=== PATIENT | female | born 1985 | race Caucasian/White ===

== ENCOUNTER → 2017-03-26 | Outpatient (CLI) | payer BC ==
[~2017-03-26] MED LIST: FLUO20CA35 PO; IBUP-1450 PO; MULT-222 PO; PRT/20 PO; RXC5 PO
--- NOTE | 2017-03-26 10:31 | DIAGNOSTIC IMAGING REPORT ---
MRI OF THE LUMBAR SPINE WITHOUT CONTRAST CLINICAL HISTORY: Lumbar disc herniation. COMPARISON STUDY: MRI of the lumbar spine April 15, 2016. TECHNIQUE: Utilizing a 1.5 Lin magnet and dedicated coil, multiplanar, multiecho imaging of the lumbar spine was performed without IV contrast. FINDINGS: For purposes of numbering on this exam, the L5-S1 disc space is assigned to axial image 23 of 26. Alignment of lumbar spine is anatomic. Vertebral body heights are maintained. Conus terminates at the lower L1 level. Paravertebral soft tissues are unremarkable. There is no suspicious marrow replacement. L1-2: The central canal and neural foramen are patent. L2-3: The central canal and neural foramen are patent. L3-4: The central canal and neural foramen are patent. L4-5: The central canal and neural foramen are patent. L5-S1: There is disc space narrowing with disc desiccation. There is a disc bulge with superimposed large central/right paracentral disc herniation which likely reflects an extrusion. This is increased in size since exam of April 15, 2016 and results in severe narrowing of the right aspect of the canal and the right lateral recess. There is no significant neural foraminal stenosis. IMPRESSION: Increase in size of a large right paracentral/central disc extrusion at L5-S1 since MRI of April 15, 2016. This results in severe narrowing of the right lateral recess and right aspect of the canal with mass effect upon the descending right S1 nerve root. The disc material may be contiguous although an adjacent disc fragment may be present. Electronically signed by: Edgar Serra M.D. 03/26/2017 10:30 AM Dictated Date/Time: 03/26/2017 10:22 AM
== END | disposition home or self-care (01) ==
LOC: C.MRI 09:36
PROVIDERS: ATTEND Orthopaedic Surgery Orthopaedic Surgery of the Spine
DX: M51.16 Intervertebral disc disorders with radiculopathy, lumbar region (principal)

== ENCOUNTER 2017-04-12 10:25 | Inpatient (IN) | payer BC ==
--- NOTE | 2017-04-01 09:53 | PAT Medication Instructions ---
Service Date Apr 01, 2017. Current Home Medication List Fluoxetine (Prozac), 20 MG PO QPM Ibuprofen (Motrin), 600 MG PO BID PRN for Pain Multiple Vitamins W/ Minerals (Multi For Her), 1 TAB PO QPM Pantoprazole (Protonix), 40 MG PO QPM Medication Instructions For Your Scheduled Surgery - Check with surgeon for instructions: Ibuprofen (Motrin), 600 MG PO BID PRN for Pain - Take the following medications as scheduled the night before surgery: Pantoprazole (Protonix), 40 MG PO QPM Multiple Vitamins W/ Minerals (Multi For Her), 1 TAB PO QPM Fluoxetine (Prozac), 20 MG PO QPM If you have any questions please call us at [phone] or [phone] or [phone]
[2017-04-01 10:24] LABS: BASO % 0.9 %; BASO ABS # 0.03 K/uL (0-0.2); COMPLETE YES; EOS % 3.7 %; HEMATOCRIT 41.8 % (37-47); IG% 0.3 %; LYMPH % 44.2 %; LYMPH ABS # 1.55 K/uL (1.2-3.4); MEAN CELL VOLUME 85.8 fL (80-100); MEAN CORPUSCULAR HEMOGLOBIN 28.5 pg (25-34); MEAN CORPUSCULAR HGB CONC 33.3 g/dl (32-36); MEAN PLATELET VOLUME 9.6 fL (7.4-10.4); MONO % 4.6 %; NEUT % 46.3 %; PLATELET COUNT 253 K/uL (130-400); RED BLOOD COUNT 4.87 M/uL (4.2-5.4); WHITE BLOOD COUNT 3.51 K/uL (4.8-10.8)
--- NOTE | 2017-04-01 10:39 | DIAGNOSTIC IMAGING REPORT ---
CHEST PREADMISSION(PA/LAT) CLINICAL HISTORY: Preoperative evaluation. COMPARISON STUDY: No previous studies for comparison. FINDINGS: Lung volumes are normal. Lungs are clear. There is no pneumothorax or pleural effusion. Cardiac size is normal. Mediastinal contours are normal. There is no evidence of pulmonary edema. IMPRESSION: No acute cardiopulmonary findings. Electronically signed by: Edgar Serra M.D. 04/01/2017 10:38 AM Dictated Date/Time: 04/01/2017 10:36 AM
[2017-04-01 10:52] LABS: URINE APPEARANCE CLEAR (CLEAR); URINE BILIRUBIN NEG (NEG); URINE COLOR YELLOW; URINE NITRITE NEG (NEG); URINE SPECIFIC GRAVITY 1.016 (1.000-1.030); UROBILINOGEN NEG (NEG)
[2017-04-01 10:58] LABS: MANUAL MICROSCOPIC REQUIRED? NO; REVIEW REQ? NO
[2017-04-01 11:24] LABS: BUN/CREATININE RATIO 13.5 (10-20); CALCIUM 8.9 mg/dl (8.5-10.1); CREATININE 0.79 mg/dl (0.60-1.20); POTASSIUM 4.4 mmol/L (3.5-5.1)
[~2017-04-12] VITALS: Ht 172.7 cm; Wt 89.2 kg
[2017-04-12] VITALS (9 sets, daily range): BP systolic 120–137; BP diastolic 74–87; PULSE 78–96; TEMP 36.3–37.1; O2SAT 97–100; Ht 172.7 cm; Wt 89.2 kg
[~2017-04-12 10:25] MED LIST changes: +CEFAZOLIN 2000 MG/60 ML D5W IV SCH; +LACTATED RINGER'S 1000ML 1,000 ML IV SCH; -RXC5 PO
[2017-04-12] MEDS ORDERED: ROCURONIUM BROMIDE 10 MG/ML 5 ML VIAL ONE ×2 (13:10→15:45)
[2017-04-12] MEDS ORDERED: ONDANSETRON INJ 2 MG/ML 2 ML VIAL ONE (13:10)
[2017-04-12] MEDS ORDERED: PROPOFOL IV EMULSION 10 MG/ML 20 ML VIAL IV ONE (13:10)
[2017-04-12] MEDS ORDERED: NEOSTIGMINE METHYLSULFATE 1 MG/ML 10ML VIAL ONE (13:10)
[2017-04-12] MEDS ORDERED: GLYCOPYRROLATE INJ 0.2 MG/ML VIAL ONE ×2 (13:10→16:34)
[2017-04-12] MEDS ORDERED: DEXAMETHASONE SOD INJ 4 MG/ML VIAL ONE (13:10)
[2017-04-12] MEDS ORDERED: MIDAZOLAM HCL 1 MG/ML 2ML VIAL ONE (13:11)
[2017-04-12] MEDS ORDERED: FENTANYL CITRATE INJ 50 MCG/1 ML 2 ML VIAL ONE ×2 (13:11→16:25)
[2017-04-12] MEDS ORDERED: SCOPOLAMINE 1.5 MG TDSY TD ONE (13:29)
[2017-04-12] MEDS ORDERED: EpHEDrine SULFATE INJ 50 MG/ML AMP IV PRN (13:30)
[2017-04-12] MEDS ORDERED: ONDANSETRON INJ 2 MG/ML 2 ML VIAL IV PRN ×2 (13:30→16:45)
[2017-04-12] MEDS ORDERED: ATROPINE SULFATE 0.1 MG/ML 5ML SYR IV PRN (13:30)
--- NOTE | 2017-04-12 14:06 | History & Physical Bridge Note ---
H&P Re-Evaluation Bridge Note: I have examined the patient, reviewed the History & Physical and in the interval since the performance of the History & Physical I have noted the following changes of clinical significance: No changes noted
--- NOTE | 2017-04-12 14:07 | History and Physical ---
History & Physical Date Apr 12, 2017. Chief Complaint BACK AND LEG PAIN History of Present Illness The patient is a 32 year old female with complaints of Additional History Hepatic Disease: No Endocrine Disorder: No Kidney Disease: No Hypertension: No Heart Disease: No Bleeding Tendencies: No Infectious Diseases: No Allergies Coded Allergies: No Known Allergies (Unverified , 04/12/17) Home Medications Scheduled Fluoxetine (Prozac), 20 MG PO QPM Multiple Vitamins W/ Minerals (Multi For Her), 1 TAB PO QPM Pantoprazole (Protonix), 40 MG PO QPM Scheduled PRN Ibuprofen (Motrin), 600 MG PO BID PRN for Pain Physical Examination Skin: warm/dry, no rash Eyes: normal inspection, EOMI, sclerae normal ENT: normal ENT inspection, pharynx normal Head: normocephalic, atraumatic Neck: supple, no adenopathy, trachea midline Respiratory/Chest: lungs clear, normal breath sounds, no respiratory distress Cardiovascular: regular rate, rhythm, no edema, no murmur Abdomen / GI: normal bowel sounds, non tender Back: normal inspection Extremities: normal inspection, normal range of motion Neurologic/Psych: no motor/sensory deficits, alert, normal reflexes, oriented x 3 Diagnosis Lumbar stenosis Plan of Treatment Lumbar decompression fusion L5-S1.
[2017-04-12] MEDS ORDERED: BACITRACIN 50000 UNIT VIAL ONE (14:33)
[2017-04-12] MEDS ORDERED: SODIUM CHLORIDE 0.9% PF 50 ML VIAL ONE (14:33)
[2017-04-12] MEDS ORDERED: BUPIVACAINE/EPINEPHRINE 0.5% MPF 1:200,000 10 ML VIAL ONE (14:34)
[2017-04-12] MEDS ORDERED: FLOSEAL HEMOSTATIC MATRIX 10ML TOP ONE (16:25)
[2017-04-12] MEDS ORDERED: PHENYLEPHRINE 100MCG/ML 5ML SYR ONE (16:31)
[2017-04-12] MEDS ORDERED: SODIUM CHLORIDE 0.9% 1000ML 1,000 ML IV SCH (16:34)
--- NOTE | 2017-04-12 16:41 | [facility] Operative Report ---
Operative Report Operative Date Apr 12, 2017. Pre-Operative Diagnosis Lumbar stenosis Post-Operative Diagnosis Same as preop Procedure(s) Performed #1 lumbar decompression medial facetectomies L5-S1. #2 posterior spinal fusion L5-S1. #3 placement of posterior instrumentation L5-S1. #4 interbody fusion L5-S1. #5 placement peek Cage 14 x 22 mm L5-S1. #6 placement of locally harvested morcellized autograft in the posterior lateral gutters. #7 placement of infuse collagen sponge by mask graft in the posterior lateral gutters DBM in the interbody space. Surgeon Jennyfer Dispatcher Chief Oil Surgeon(s) Ernesto Estimated Blood Loss 100 Findings Herniated nucleus pulposus Description of Procedure Patient was met with preoperatively case discussed all questions were addressed. The point patient was taken back to the operative suite and after undergoing intubation was placed in a prone position on the Anam table top of the Luis frame. All bony prominences were well-padded eyes inspected to ensure there is no external pressure placed upon them. This point the lumbar spine was prepped and draped in normal sterile fashion. All bony prominences were well-padded eyes were inspected to ensure there is no external pressure placed upon them. This point the lumbar spines prepped and draped no sterile fashion. Sharp dissection with the assistance of Bovie cautery was performed down to and exposing the lamina and transverse processes of L5 and the sacral alar and laterally. Complete laminectomy of L5 was performed noting severe lateral recess stenosis and marked compression of the traversing S1 nerve root on the right. Masseter muscle discectomy material compressing the nerve both anteriorly and posteriorly. Pedicle fusion and placed in L5-S1 levels bilaterally with assistance of fluoroscopy and the Sushila size yang placed. Through a transforaminal approach on the right a complete discectomy was performed and plate create subcortical bleeding bone and a 14 x 22 mm peek cage filled with DBM tapped in position. We did completely decompress the traversing exiting nerve roots on the right and moving all herniated fragments. Brought in and locked and final position bilaterally the transverse processes of 5 and significantly burred to subcortical bleeding bone infuse collagen sponge mask graft locally harvested morcellized autograft placed in the posterior gutters. 15 round ALEXSANDER drain inserted. Incision closed with 1 Vicryl fascia 2-0 Vicryl subcutaneously and 4-0 Monocryl for final skin closure. Sterile dressings. Displaced patient awakened taken to PACU in stable condition. Please note Trudy Orzoco was present throughout the entire procedure from patient positioning complex portions of the procedure and final skin closure. I attest to the content of the Intraoperative Record and any orders documented therein. Any exceptions are noted below.
[2017-04-12] MEDS ORDERED: DO NOT ADMINISTER FLU VACCINE PRN ×3 (16:45)
[2017-04-12] MEDS ORDERED: SOD PHOSPHATE/SOD BIPHOSPHATE ENEMA 132 ML BTL PR PRN (16:45)
[2017-04-12] MEDS ORDERED: NALOXONE HCL 0.4 MG/1 ML VIAL/CARP IV PRN ×2 (16:45)
[2017-04-12] MEDS ORDERED: FAMOTIDINE 20 MG TAB PO PRN (16:45)
[2017-04-12] MEDS ORDERED: LORAZEPAM 0.5 MG TAB PO PRN (16:45)
[2017-04-12] MEDS ORDERED: hydrOXYzine HCL 25 MG TAB PO PRN (16:45)
[2017-04-12] MEDS ORDERED: DO NOT ADMINISTER PNEUMOCOCCAL VACCINE PRN ×2 (16:45)
[2017-04-12] MEDS ORDERED: ACETAMINOPHEN IV 100 ML IV PRN (16:45)
[2017-04-12] MEDS ORDERED: MAGNESIUM HYDROXIDE SUSP 30 ML UDC PO PRN (16:45)
[2017-04-12] MEDS ORDERED: PROMETHAZINE HCL INJ 12.5 MG in SODIUM CHLORIDE 0.9% 50ML 50 ML IV PRN (16:45)
[2017-04-12] MEDS ORDERED: ACETAMINOPHEN 500 MG TAB PO PRN (16:45)
[2017-04-12] MEDS ORDERED: LORAZEPAM INJ 0.5 MG in SYRINGE 0.75 ML IV PRN (16:45)
[2017-04-12] MEDS ORDERED: METOCLOPRAMIDE HCL INJ 5 MG/ML 2 ML VIAL IV PRN (16:45)
[2017-04-12] MEDS ORDERED: BISACODYL 10 MG SUPP PR PRN (16:45)
[2017-04-12] MEDS ORDERED: ALUMINUM/MAGNESIUM SUSP 30 ML UDC PO PRN (16:45)
[2017-04-12] MEDS: FENTANYL CITRATE INJ 50 MCG/1 ML 2 ML VIAL IV PRN ×4 (16:58→17:15)
[2017-04-12] MEDS: HYDROmorphone HCL 0.5MG/ML 50 ML CASSETTE IV PRN ×3 (17:04→23:04)
[2017-04-12] MEDS: HYDROmorphone INJ 1 MG/ML SYR IV PRN ×2 (17:21→17:30)
--- NOTE | 2017-04-12 17:26 | DIAGNOSTIC IMAGING REPORT ---
LUMBAR SPINE 2 OR 3 VIEW CLINICAL HISTORY: L5-S1 DECOMPRESSION/FUSION/INTERBODY TECHNIQUE: Image intensifier COMPARISON STUDY: None FINDINGS: Findings consistent with an L5-S1 laminectomy and fusion. Disc spacers are present IMPRESSION: Anatomic alignment status post L5-S1 fusion The above report was generated using voice recognition software. It may contain grammatical, syntax or spelling errors. Electronically signed by: Conrado Wong M.D. 04/12/2017 5:24 PM Dictated Date/Time: 04/12/2017 5:24 PM
--- NOTE | 2017-04-12 17:58 | Anesthesiology Progress Note ---
Anesthesia Post Op Note Date & Time Apr 12, 2017 at 17:58 Vital Signs Pain Intensity: 3 Vital Signs Past 12 Hours Date Time Temp Pulse Resp B/P (MAP) Pulse Ox O2 Delivery O2 Flow Rate FiO2 04/12/17 17:40 36.6 71 14 132/72 100 Nasal Cannula 4 04/12/17 17:30 77 12 128/74 100 Nasal Cannula 4 04/12/17 17:20 72 16 131/74 100 Nasal Cannula 4 04/12/17 17:10 67 126/70 100 Mask 6 04/12/17 17:00 75 14 112/75 100 Mask 8 04/12/17 16:51 36.6 107 17 131/72 100 Mask 10 04/12/17 11:27 36.9 78 18 120/80 100 Room Air Notes Mental Status: alert / awake / arousable, participated in evaluation Pt Amnestic to Procedure: Yes Nausea / Vomiting: adequately controlled Pain: adequately controlled Airway Patency, RR, SpO2: stable & adequate BP & HR: stable & adequate Hydration State: stable & adequate Anesthetic Complications: no major complications apparent
[2017-04-12] MEDS: LACTATED RINGER'S 1000ML 1,000 ML IV SCH (18:11)
[2017-04-12] MEDS: PANTOprazole SOD 40 MG TAB PO SCH (20:13)
[2017-04-12] MEDS: FLUOXETINE HCL 20 MG CAP PO SCH (21:06)
[2017-04-12] MEDS: DEXAMETHASONE INJ 6 MG in SYRINGE 0 ML IV SCH (21:06)
[2017-04-12] MEDS: CEFAZOLIN IV 2,000 MG in DEXTROSE 5% 50ML 50 ML IV SCH (21:06)
[2017-04-12] MEDS: DOCUSATE SODIUM/SENNA 50/8.6MG TAB PO SCH (21:26)
[2017-04-13] VITALS (9 sets, daily range): BP systolic 97–125; BP diastolic 55–85; PULSE 63–93; TEMP 36.5–37.3; O2SAT 97–100
[2017-04-13] MEDS: LACTATED RINGER'S 1000ML 1,000 ML IV SCH ×2 (00:21→05:54)
[2017-04-13] MEDS ORDERED: HYDROmorphone INJ 1 MG/ML SYR IV PRN (06:00)
[2017-04-13] MEDS ORDERED: HYDROmorphone INJ 0.5 MG/0.5 ML SYR IV PRN (06:00)
[2017-04-13] MEDS ORDERED: DC PCA SCH (06:00)
[2017-04-13] MEDS: CEFAZOLIN IV 2,000 MG in DEXTROSE 5% 50ML 50 ML IV SCH (06:14)
[2017-04-13] MEDS: DEXAMETHASONE INJ 6 MG in SYRINGE 0 ML IV SCH ×2 (06:28→13:35)
[2017-04-13] MEDS ORDERED: NURSING VERBAL MED ORDER ONE (06:45)
[2017-04-13 07:12] LABS: COMPLETE YES; HEMATOCRIT 36.6 % (37-47); IG% 0.1 %; LYMPH % 8.8 %; LYMPH ABS # 0.73 K/uL (1.2-3.4); MEAN CELL VOLUME 84.5 fL (80-100); MEAN CORPUSCULAR HEMOGLOBIN 27.9 pg (25-34); MEAN CORPUSCULAR HGB CONC 33.1 g/dl (32-36); MEAN PLATELET VOLUME 9.4 fL (7.4-10.4); MONO % 5.8 %; NEUT % 85.3 %; PLATELET COUNT 273 K/uL (130-400); RED BLOOD COUNT 4.33 M/uL (4.2-5.4)
[2017-04-13 07:39] LABS: BUN/CREATININE RATIO 8.9 (10-20); CALCIUM 8.9 mg/dl (8.5-10.1); CREATININE 0.8 mg/dl (0.60-1.20); POTASSIUM 3.9 mmol/L (3.5-5.1)
--- NOTE | 2017-04-13 08:05 | Progress Note ---
Progress Note Date of Service Apr 13, 2017. Progress Note Patient specifically 1. Right leg symptoms markedly improved. Back pain well controlled. Vital signs stable. ALEXSANDER drain decreasing appropriately. Assessment status post lumbar decompression fusion. Plan is to initiate physical therapy advance her bowel regimen. Hopefully she'll be discharged home once .
[2017-04-13] MEDS ORDERED: RXC5 PO (08:14)
--- NOTE | 2017-04-13 08:14 | Discharge Instructions ---
Discharge Instructions Date of Service Apr 13, 2017. Admission Reason for Admission: Lumbar Spinal Stenosis Discharge Discharge Diagnosis / Problem: lumbar stenosis Discharge Goals Goal(s): Improve function Activity Recommendations Activity Limitations: per Instructions/Follow-up section . Instructions / Follow-Up Instructions / Follow-Up ACTIVITY RECOMMENDATIONS: SELF CARE INSTRUCTIONS AFTER THORACIC/LUMBAR FUSIONS 1. You may walk to your tolerance. It is good exercise for your legs and back. Expect some back and intermittent leg aches and pains. 2. You may perform "counter-top" level activities (make a sandwich, aiyana with a project, etc.). 3. No bending or lifting of more than 10 pounds or back twisting of any nature (roll like a log when turning in bed). 4. You may ride in a car for 20-30 minutes at a time. No driving until after your first visit with your doctor. 5. Frequent changes of position and restricting sitting to 30 minutes at a time will help limit the amount of back spasms and stiffness you may experience. 6. You may discontinue the use of ambulatory aids (cane, crutches, etc.) once your strength and confidence allow. 7. You may java swing developer the shower and let water strike your incision when you arrive home at least once daily. Do not take a tub bath, sit in a hot tub or go into a swimming pool until after your first recheck in the office. SPECIAL CARE INSTRUCTIONS: VERY IMPORTANT TO READ AND REVIEW A. Your surgical incision has been closed with a cosmetic suture under the skin that will dissolve in about 6 weeks. In 14 days, you can use a pair of clean scissors and cut the suture that is left outside of the skin at the ends of your incision. 1. The small skin tapes can be removed 7 days after surgery if they have not fallen off by that point. 2. You may keep the wound open to air as much as possible to promote healing after post-op day number 5 unless told otherwise by your doctor. 3. If you think the wound looks like it is becoming infected (redness or worsening drainage) and/or you are experiencing fever, chill or worsening back pain and muscle spasms, contact the office so that we may evaluate you as soon as possible. B. Complications are uncommon, but please contact us if you have any signs or symptoms of: 1. wound infection (fever higher than 102.5 degrees F, redness, separation of wound, drainage, or increasing pain from the incision) 2. blood clots in legs (pain, swelling, redness and warmth in legs) 3. urinary tract infection (fever higher than 102.5 degrees F, burning upon urination or increased frequency of urination) 4. nerve problems (inability to walk on your toes or heels, numbness, loss of bowel or bladder control) 5. any other symptoms that concern you C. Please call the office at if you have any concerns or questions about your operation or recovery. D. No smoking! Smoking drastically decreases the chance of a solid fusion. E. Do not take any anti-inflammatory medications (Indocin, Advil, Motrin, Aspirin, Naprosyn, etc.) as these may inhibit the chance of a solid fusion. Tylenol is okay to take for pain. MANAGING PAIN AFTER SPINAL SURGERY 1. Narcotic medication is intended for short-term use and will be provided for surgical pain. Surgical pain usually lasts for a period of 4-6 weeks. Narcotic medication includes Percocet, Vicodin, Darvocet, Tylenol #3 or Lortab. 2. Longer-term pain is more appropriately treated with non-narcotic medication such as Tylenol ES. 3. Muscle spasm is not appropriately treated with narcotics. Muscle relaxers such as Soma, Flexeril or Skelaxin can be used along with Tylenol ES. 4. Remember that we all live with some "aches and pains". This is not unusual or uncommon after an injury or as we get older. a. Back pain is expected and may include muscle spasms for 4 to 6 weeks after surgery. The pain should gradually improve. If the pain worsens for no apparent reason, please contact the office. b. Intermittent leg pain may also be experienced and should not be concerned about unless it worsens for no apparent reason. If so, please contact the office. 5. We will provide appropriate medication within the normal guidelines of their prescribed use. We will also be very cautious and aware of potential abuse and extended duration of patients' medication needs. a. Pain medications are for your comfort and to assist with sleep and rest so that the tissue can heal. They are not provided in order to return to normal activity and should not be used through the day. To do so or worsening pain at night can result from ongoing tissue damage and development of tolerance to the prescribed medicine. 6. Please allow 2-3 days to process refills. Prescriptions will not be mailed but must be picked up at the office. FOLLOW UP VISIT: Keep your scheduled follow-up appointment. Any questions, please call the office at . Current Hospital Diet Patient's current hospital diet: Regular Diet Discharge Diet Recommended Diet: Regular Diet Procedures Procedures Performed: #1 lumbar decompression medial facetectomies L5-S1. #2 posterior spinal fusion L5-S1. #3 placement of posterior instrumentation L5-S1. #4 interbody fusion L5-S1. #5 placement peek Cage 14 x 22 mm L5-S1. #6 placement of locally harvested morcellized autograft in the posterior lateral gutters. #7 placement of infuse collagen sponge by mask graft in the posterior lateral gutters DBM in the interbody space. Pending Studies Studies pending at discharge: no Medical Emergencies . Who to Call and When: Medical Emergencies: If at any time you feel your situation is an emergency, please call 911 immediately. . Non-Emergent Contact Non-Emergency issues call your: Primary Care Provider . "Provider Documentation" section prepared by Oracio Burger. . VTE Core Measure Inpt VTE Proph given/why not?: Jaymie Miller, SCD's
--- NOTE | 2017-04-13 08:14 | Anesthesiology Progress Note ---
Anesthesia Post Op Note Date & Time Apr 13, 2017 at 08:13 Vital Signs Pain Intensity: 2.0 Vital Signs Past 12 Hours Date Time Temp Pulse Resp B/P (MAP) Pulse Ox O2 Delivery O2 Flow Rate FiO2 04/13/17 08:06 36.9 63 10 118/73 (88) 100 Room Air 04/13/17 08:03 Room Air 04/13/17 03:53 37.0 93 16 118/78 (91) 97 Room Air 04/13/17 00:30 82 100 Room Air 04/13/17 00:10 Room Air 04/12/17 23:31 37.1 96 14 137/78 (97) 99 Nasal Cannula 4.0 04/12/17 21:56 36.8 85 14 123/78 (93) 99 Nasal Cannula 3.0 04/12/17 20:56 36.6 87 18 122/79 (93) 97 Room Air Notes Mental Status: alert / awake / arousable, participated in evaluation Pt Amnestic to Procedure: Yes Nausea / Vomiting: adequately controlled Pain: adequately controlled Airway Patency, RR, SpO2: stable & adequate BP & HR: stable & adequate Hydration State: stable & adequate Anesthetic Complications: no major complications apparent
[2017-04-13] MEDS ORDERED: KETOROLAC TROMETHAMINE 30 MG/ML VIAL IV PRN (08:15)
[2017-04-13] MEDS: OXYCODONE HCL IR 5 MG TAB (IMMEDIATE RELEASE) PO PRN ×3 (08:23→19:34)
[2017-04-13] MEDS ORDERED: NURSING DECISION MEDICATION ORDER SCH (19:15)
[2017-04-13] MEDS ORDERED: COUGH DROP (SUGAR FREE) LOZ 24 LOZ/1 BOX PO PRN (19:30)
[2017-04-13] MEDS: FLUOXETINE HCL 20 MG CAP PO SCH (20:40)
[2017-04-13] MEDS: PANTOprazole SOD 40 MG TAB PO SCH (20:40)
[2017-04-13] MEDS: DOCUSATE SODIUM/SENNA 50/8.6MG TAB PO SCH (21:11)
[2017-04-14] VITALS: BP 103/61; PULSE 64
[2017-04-14] MEDS: POLYETHYLENE (MIRALAX) 17 GM PACK PO SCH ×2 (05:39→11:18)
[2017-04-14 06:01] VITALS: BP 103/62; PULSE 70; TEMP 36.9; O2SAT 97
[2017-04-14 07:13] VITALS: BP 125/72; PULSE 71; TEMP 37; O2SAT 97
[2017-04-14] MEDS: OXYCODONE HCL IR 5 MG TAB (IMMEDIATE RELEASE) PO PRN (10:23)
[2017-04-14 12:15] VITALS: BP 125/72; PULSE 71; TEMP 37; O2SAT 97
--- NOTE | 2017-04-14 13:33 | Discharge Summary ---
Orthopedic Discharge Summary Admission Date/Reason Apr 12, 2017 at 11:20 Lumbar Spinal Stenosis. Discharge Date/Disposition Apr 14, 2017 Home Diagnosis Principal Diagnosis: Spinal stenosis Admission Physical Exam As per Admitting History & Physical. Hospital Course Patient underwent lumbar decompression and fusion tolerated this well orthopedic for postoperative. Postoperative day 1 lumbar 1 to is up in the inferior progress nicely. Postoperative day #2 ALEXSANDER drain decreased improperly pain well controlled subsequently discharged home. Discharge orders and instructions found the chart for further review. Discharge Instructions Please refer to the electronic Patient Visit Report (Discharge Instructions) for additional information.
== END 2017-04-14 13:09 | disposition home or self-care (01) | DRG 460 ==
LOC: C.ACU 10:25 → C.3E 11:20 → ENRESERV 17:36
PROVIDERS: ADMIT Orthopaedic Surgery Orthopaedic Surgery of the Spine; ATTEND Orthopaedic Surgery Orthopaedic Surgery of the Spine
PROC: 0SG30AJ Fusion of Lumbosacral Joint with Interbody Fusion Device, Posterior Approach, Anterior Column, Open Approach (ICD-10-PCS; principal; 2017-04-12 11:45)
PROC: 0SB20ZZ Excision of Lumbar Vertebral Disc, Open Approach (ICD-10-PCS; principal; 2017-04-12 11:45)
DX: M48.06 Spinal stenosis, lumbar region (principal); Z79.899 Other long term (current) drug therapy

== ENCOUNTER → 2017-07-15 | Outpatient (CLI) | payer BC ==
[~2017-07-15] MED LIST changes: -CEFAZOLIN 2000 MG/60 ML D5W IV SCH; -IBUP-1450 PO; -LACTATED RINGER'S 1000ML 1,000 ML IV SCH; +RXC5 PO
== END | disposition home or self-care (01) ==
LOC: C.PAPS 12:11
PROVIDERS: ATTEND Family Medicine
DX: Z12.4 Encounter for screening for malignant neoplasm of cervix (principal); Z11.51 Encounter for screening for human papillomavirus (HPV)

== ENCOUNTER 2019-06-27 07:11 | Observation (INO) ==
--- NOTE | 2019-06-20 09:32 | Anesthesiology Consultation ---
Date of Service June 20, 2019 Assessment & Plan (1) Encounter for pre-operative examination: Chart Review Chart Review: Acceptable Risk for Surgery and Patient NOT seen in Pre Admission Testing Consults Requested none History Surgery Operation Date: 06/27/19 12:40 Proposed Procedures p Laparoscopic Cholecystectomy with Cholangiogram, Possible Open Cholecystectomy with Cholangiogram - Neal Arevalo MD Height/Weight Height: 5 ft 8 in Weight: 102.058 kg Allergies Allergy/AdvReac Type Severity Reaction Status Date / Time No Known Allergies Allergy Verified 06/19/19 14:55 Medications Home Medications Medication Instructions Recorded Confirmed Last Taken fluoxetine 20 mg PO HS 03/19/19 06/19/19 06/18/19 norgestimate-ethinyl estradiol 1 tab PO QAM 03/19/19 06/19/19 Unknown [Tri-Sprintec (28)] pantoprazole [Protonix] 40 mg PO QDD 03/19/19 06/19/19 06/18/19 Past Medical History Medical History Acid reflux Anxiety Nausea and vomiting after administration of anesthetic agent GETS MOTION SICKNESS, PATCH BEHIND EAR HELPS Polyp of gallbladder Past Family History Family History Mother Hypertension Father Hypertension Sister Hypertension Past Surgical History Surgical History History of lumbar fusion L5-S1 MARCH 2017 Social History Smoking Status: Former smoker Do You Dip or Chew Tobacco: No Smoking End Date: SMOKED IN COLLEGE, QUIT 2009 Hx Alcohol Use: Yes Alcohol type: beer and wine Alcohol Intake Frequency Comment: 4-6 DRINKS A WEEK Hx Substance Use: No substance use type: does not use Testing Laboratory Results Laboratory Tests 06/02/19 06/02/19 11:34 11:34 WBC 3.66 L Hgb 11.5 L Hct 36.4 L Plt Count 317 Sodium 139 Potassium 4.2 Chloride 107 Carbon Dioxide 27 BUN 10 Creatinine 0.72 Glucose 84 Electrocardiogram Date: 03/19/19 Findings: + NSR @ (88) Normal ECG.
[~2019-06-27 07:11] MED LIST changes: -FLUO20CA35 PO; +LR 15ML/HR IV SCH; -MULT-222 PO; -PRT/20 PO; -RXC5 PO; +SCOPOLAMINE 1.5 MG TDSY TD SCH
--- NOTE | 2019-06-27 07:29 | History & Physical Bridge Note ---
Date of Service June 27, 2019 History & Physical Bridge Note I have examined the patient, reviewed the History & Physical and in the interval since the performance of the History & Physical I have noted the following changes of clinical significance: no changes noted all questions answered to be here later
[2019-06-27] MEDS ORDERED: LIDOCAINE HCL 2% 2 ML VIAL/AMP(20MG/ML) INFIL ONE (07:42)
[2019-06-27] MEDS ORDERED: ROCURONIUM BROMIDE 10 MG/ML 5 ML VIAL ONE (07:42)
[2019-06-27] MEDS ORDERED: PROPOFOL IV EMULSION 10 MG/ML 20 ML VIAL IV ONE (07:42)
[2019-06-27] MEDS ORDERED: MIDAZOLAM HCL 1 MG/ML 2ML VIAL ONE (07:42)
[2019-06-27] MEDS ORDERED: ONDANSETRON INJ 2 MG/ML 2 ML VIAL ONE (07:42)
[2019-06-27] MEDS ORDERED: DEXAMETHASONE SOD INJ 4 MG/ML VIAL ONE (07:42)
[2019-06-27] MEDS ORDERED: fentaNYL citrate 100 MCG/2 ML VIAL ONE ×4 (07:42→10:29)
[2019-06-27] MEDS ORDERED: ATROPINE SULFATE 0.1 MG/ML 10ML SYR IV PRN (08:07)
[2019-06-27] MEDS ORDERED: LABETALOL HCL IV 5 MG/ML 20ML IV PRN (08:07)
[2019-06-27] MEDS ORDERED: ONDANSETRON INJ 2 MG/ML 2 ML VIAL IV PRN ×3 (08:07→12:44)
[2019-06-27] MEDS ORDERED: MEPERIDINE HCL 25 MG/ML CARP IV PRN (08:07)
[2019-06-27] MEDS ORDERED: ePHEDrine sulfate 50 MG/ML AMP IV PRN (08:07)
[2019-06-27] MEDS ORDERED: PHENYLEPHRINE 100MCG/ML 5ML SYR IV PRN (08:07)
[2019-06-27] MEDS ORDERED: LIDOCAINE/EPINEPHRINE 1% 20 ML VIAL ONE (09:03)
[2019-06-27] MEDS ORDERED: CONRAY 60% 50 ML VIAL ONE (09:03)
[2019-06-27] MEDS ORDERED: ePHEDrine sulfate 50 MG/ML SYR ONE (09:54)
[2019-06-27] MEDS ORDERED: GLYCOPYRROLATE 0.2 MG/ML VIAL ONE (09:54)
[2019-06-27] MEDS ORDERED: OXYCODONE/ACETAMINOPHEN 5mg/325mg TAB PO PRN ×2 (10:05)
[2019-06-27] MEDS ORDERED: MoRPHine SULFATE 4 MG/ML 1 ML CARP\\VIAL IV PRN ×2 (10:05→12:44)
[2019-06-27] MEDS ORDERED: MoRPHine SULFATE 2 MG/ML CARP IV PRN ×2 (10:05→12:44)
[2019-06-27] MEDS ORDERED: LABETALOL HCL IV 5 MG/ML 20ML IV ONE (10:05)
[2019-06-27] MEDS ORDERED: SODIUM CHLORIDE 0.9% 1000ML 1,000 ML IV SCH (10:15)
[2019-06-27] MEDS ORDERED: SURGICEL ABSORB HEMOSTAT 2IN X 14IN TOP ONE (10:18)
--- NOTE | 2019-06-27 10:42 | Post Operative Brief Note ---
[facility] Immediate Post Op with CF Date of Surgery June 27, 2019 Pre & Post Diagnosis Operation Date: 06/27/19 08:20 Pre-Op Diagnosis: Cholecystitis Post-Op Diagnosis: Cholecystitis Procedure Operation Date: 06/27/19 08:20 Actual Procedures p Laparoscopic Cholecystectomy (Not Applicable) - Neal Arevalo MD Surgeon Neal Arevalo MD Clinical Research Tech Rivas CHRISTIAN Estimated Blood Loss 50 Findings Consistent with Post-Op Diagnosis Specimens Specimen Description: A: gallbladder Drains Anam-Lyle Drain
[2019-06-27] MEDS: fentaNYL citrate 100 MCG/2 ML VIAL IV PRN ×4 (11:08→11:23)
--- NOTE | 2019-06-27 11:20 | Operative Report ---
PG Post Operative Report Pre & Post Diagnosis Operation Date: 06/27/19 08:20 Pre-Op Diagnosis: Cholecystitis Post-Op Diagnosis: Cholecystitis Procedure Operation Date: 06/27/19 08:20 Actual Procedures p Laparoscopic Cholecystectomy (Not Applicable) - Neal Arevalo MD The patient was brought into the operating theater supine position general endotracheal anesthesia the abdomen was prepped Betadine solution properly draped patient identified timeout was had small incision was made supraumbilically we know the scar tissue of the jewelry that she were in the supraumbilical area incision was transverse to the quarter of an inch long Veress needle introduced followed by CO2 followed by 5 mm trocar we had intra- abdominal pressure of 15 insufflating camera followed no injury identified on direct visualization placed a 5 mm epigastric port and 2 5 mm subcostal port with preemptive local analgesic at this point the anesthesia felt that the heart rate was going in the 30s therefore we stopped insufflation and deflated the abdomen and eventually bradycardia that she sustained to resolve on its own I am not sure of the etiology whether was vagal in nature the intra-abdominal pressure really never went on a problem 15 but this point I lower the pressure to 12. Patient was placed in reverse Trendelenburg position rotated to the left gallbladder was elevated the left lobe of liver was actually coming towards the gallbladder as we elevated in the neck some adhesions were taken down by blunt dissection we then were able to expose the cystic duct created a window around it we clipped approximately a small opening cystic duct was made and there was a little woozy along the cystic duct that we cauterized a small incision was made in the cystic duct and #4 urethral catheter transverse to the abdominal wall was tried to position the cystic duct but the catheter was actually bigger than the duct were unable to place it therefore we stopped the attempt a cholangiogram the cystic duct was triply clipped distally and divided proximally and divided the artery was then identified identified it was doubly clipped proximally one distally but we had a generalized oozing with this patient even the peritoneum on the gallbladder that we try to save as much as possible posterior disc oozed considerably even though we had the arteries it seemed like that she has branching a mostly along the liver bed for multiple small arteries. Actually up most of the time we spent the procedure was try to control and the upper portion of the liver bed laterally a small bleeder even though we had not really entered the liver parenchyma we cauterized multiple times a 25/35 but it seemed like it was discontinued to read we placed a piece of Surgicel in the area to the point that I felt that we could not do anymore we just excepted it and we drained his subcostal area the gallbladder was then removed and placed in Endopouch and taken out intact through the epigastric port was suctioned out the subhepatic suprahepatic area at times it seems like that the oozer in the liver fossa was stopping therefore we left the Surgicel in there and I elected to place a Lester drain of 15 taken out medially to the lateral port prior to doing that we placed the camera subcostal port to visualize the umbilical opening and no injury adhesions were identified there the 15 Lester drain was then sutured to skin edge with 2-0 silk. This was placed subhepatically. The individual trochars removed on the requisition unless the umbilical trocar wounds were closed with 4-0 Monocryl Steri-Strips applied procedure was tolerated well except for the generalized oozing that the patient had normally liver bed but we are trying to closed just in the subcutaneous tissue and skin edges. Estimated blood loss approximately 50 cc thank you addendum Rivas CHRISTIAN was present throughout the procedure and help to retraction camera work and wound closure Surgeon Neal Arevalo MD Project Manager Finance Rivas CHRISTIAN Estimated Blood Loss 50 Findings Consistent with Post-Op Diagnosis Specimens gallbladder Description of Procedure merda I attest to the content of the Intraoperative Record and any orders documented therein. Any exceptions are noted below.
[2019-06-27] MEDS: HYDROmorphone INJ 1 MG/ML SYRINGE IV PRN ×4 (11:38→11:53)
--- NOTE | 2019-06-27 11:40 | Anesthesiology Progress Note ---
Date of Service June 27, 2019 Anesthesia Post Procedure Vital Signs Vital Signs: Temp Pulse Pulse Resp BP BP Pulse Ox 06/27/19 11:25 66 10 L 138/81 100 06/27/19 11:15 71 19 139/79 100 06/27/19 11:05 76 19 138/73 100 06/27/19 10:59 36.0 C L 87 19 123/81 98 06/27/19 07:55 37.2 C 75 16 132/85 98 Pain Intensity Bilateral Abdomen: Pain Intensity: 3 Transfer of Care Handoff Completed per policy Notes Mental Status: alert / awake / arousable Patient Amnestic to Procedure: Yes Nausea / Vomiting: adequately controlled Pain: adequately controlled and improving with treatment Airway Patency, RR, SpO2: stable & adequate BP & HR: stable & adequate Hydration State: stable & adequate Anesthetic Complications: no major complications apparent and Pt Satisfied with anesthetic care
[2019-06-27 11:53] LABS: Basophils # (auto) 0.01 K/uL (0-0.2); Basophils % (auto) 0.1 %; Eosinophils # (auto) 0.04 K/uL (0-0.5); Eosinophils % (auto) 0.5 %; Hematocrit (blood only) 35.7 % (37-47); Hemoglobin 11.3 g/dL (12.0-16.0); Immature Granulocytes # (auto) 0.01 K/uL (0.00-0.02); Immature Granulocytes % (auto) 0.1 %; Lymphocytes % (auto) 10.7 %; Mean Corpuscular Hemoglobin 25.3 pg (25-34); Mean Corpuscular Hgb Conc 31.7 g/dL (32-36); Mean Corpuscular Volume 79.9 fL (80-100); Mean Platelet Volume 9.7 fL (7.4-10.4); Monocytes % (auto) 1.3 %; Neutrophils # (auto) 6.54 K/uL (1.4-6.5); Neutrophils % (auto) 87.3 %; Platelet Count 232 K/uL (130-400); RDW Coefficient of Variation 17.5 % (11.5-14.5); RDW Standard Deviation 51.3 fL (36.4-46.3); Red Blood Count 4.47 M/uL (4.2-5.4)
[2019-06-27 12:08] LABS: Partial Thromboplastin Ratio 0.8; Partial Thromboplastin Time 22.1 Seconds (21.0-31.0); Prothrombin Time 9.9 Seconds (9.0-12.0)
[2019-06-27] MEDS ORDERED: LACTATED RINGER'S 1,000 ML IV SCH (12:44)
[2019-06-27] MEDS: CHECK SCOPOLAMINE PATCH PLACEMENT SCH ×2 (12:45→15:37)
[2019-06-27] MEDS: OXYCODONE/ACETAMINOPHEN 5mg/325mg TAB PO PRN ×2 (15:38→19:27)
[2019-06-27] MEDS ORDERED: PANTOprazole 40 MG TAB PO SCH (16:30)
--- NOTE | 2019-06-27 19:42 | Surgery Progress Note ---
Date of Service sitting inchair reading a book without complaints states tolerated diet June 27, 2019 Assessment & Plan (1) Cholelithiasis: await 9 pm lab iv fluid dec to 50cc per hour(pt voided salome 1000cc since OR no obvious ongoing bleeding from gallbladder bed Present on Admission?: Yes Physical Exam Physical Exam: vitals noted HR 100 bp notec nixon drainage slightly bloody moresdilauted than earlier last emptied at salome 3 with 50cc appears to have salome 15cc now Results & Data Vital Signs (Past 12 Hours) Vital Signs Temp Pulse Pulse Resp BP BP Pulse Ox 06/27/19 15:31 37.1 C 100 H 18 125/79 98 06/27/19 14:58 37.0 C 85 18 144/82 H 97 06/27/19 13:36 37.4 C 92 H 18 130/84 96 06/27/19 13:06 36.6 C 85 18 134/83 100 06/27/19 12:35 36.9 C 78 18 126/82 100 06/27/19 12:15 79 2 L 142/91 H 100 06/27/19 12:05 36.8 C 80 21 139/93 100 06/27/19 11:55 69 13 134/80 100 06/27/19 11:45 75 12 133/91 100 06/27/19 11:35 77 18 138/79 100 06/27/19 11:25 66 10 L 138/81 100 06/27/19 11:15 71 19 139/79 100 06/27/19 11:05 76 19 138/73 100 06/27/19 10:59 36.0 C L 87 19 123/81 98 06/27/19 07:55 37.2 C 75 16 132/85 98 PG Care Time/CCT Total # of Minutes Spent Total Time Spent with Patient: Total time spent is greater than 50% in coordination of care (as documented) at patient's floor/unit and/or counseling patient:
[2019-06-27] MEDS ORDERED: FLUOXETINE HCL 20 MG CAP PO SCH (21:00)
[2019-06-27 22:23] LABS: Basophils # (auto) 0.01 K/uL (0-0.2); Basophils % (auto) 0.1 %; Hemoglobin 10.8 g/dL (12.0-16.0); Immature Granulocytes # (auto) 0.02 K/uL (0.00-0.02); Immature Granulocytes % (auto) 0.3 %; Lymphocytes # (auto) 0.87 K/uL (1.2-3.4); Lymphocytes % (auto) 11.2 %; Mean Corpuscular Hemoglobin 25.2 pg (25-34); Mean Corpuscular Hgb Conc 31.8 g/dL (32-36); Mean Corpuscular Volume 79.4 fL (80-100); Mean Platelet Volume 9.8 fL (7.4-10.4); Monocytes % (auto) 5.2 %; Neutrophils # (auto) 6.46 K/uL (1.4-6.5); Neutrophils % (auto) 83.2 %; Platelet Count 282 K/uL (130-400); RDW Coefficient of Variation 17.7 % (11.5-14.5); RDW Standard Deviation 51.4 fL (36.4-46.3); Red Blood Count 4.28 M/uL (4.2-5.4); White Blood Count 7.76 K/uL (4.8-10.8)
[2019-06-28] MEDS: OXYCODONE/ACETAMINOPHEN 5mg/325mg TAB PO PRN ×2 (00:03→06:35)
[2019-06-28] MEDS: CHECK SCOPOLAMINE PATCH PLACEMENT SCH ×2 (00:04→08:09)
[2019-06-28 05:29] LABS: Basophils # (auto) 0.01 K/uL (0-0.2); Basophils % (auto) 0.1 %; Eosinophils # (auto) 0.01 K/uL (0-0.5); Eosinophils % (auto) 0.1 %; Hemoglobin 10.6 g/dL (12.0-16.0); Immature Granulocytes # (auto) 0.01 K/uL (0.00-0.02); Immature Granulocytes % (auto) 0.1 %; Lymphocytes # (auto) 2.14 K/uL (1.2-3.4); Lymphocytes % (auto) 29.7 %; Mean Corpuscular Hemoglobin 25.7 pg (25-34); Mean Corpuscular Hgb Conc 32.1 g/dL (32-36); Mean Corpuscular Volume 79.9 fL (80-100); Mean Platelet Volume 9.6 fL (7.4-10.4); Monocytes # (auto) 0.57 K/uL (0.11-0.59); Monocytes % (auto) 7.9 %; Neutrophils # (auto) 4.46 K/uL (1.4-6.5); Neutrophils % (auto) 62.1 %; Platelet Count 249 K/uL (130-400); RDW Coefficient of Variation 17.9 % (11.5-14.5); RDW Standard Deviation 52.2 fL (36.4-46.3); Red Blood Count 4.13 M/uL (4.2-5.4)
[2019-06-28 05:51] LABS: BUN Creatinine Ratio 5.2 (10-20); Calcium 8.2 mg/dl (8.5-10.1); Creatinine Clr Calc Pharmacy 142.4 ml/min; Est GFR (African American) 128.8; Est GFR (Non-African American) 111.1; Potassium 3.6 mmol/L (3.5-5.1)
--- NOTE | 2019-06-28 07:34 | Surgery Progress Note ---
Date of Service June 28, 2019 Assessment & Plan (1) S/P laparoscopic cholecystectomy: POD#1 Laparoscopic cholecystectomy Hbg has been trended post operatively with only a slight downtrend. Overall stable at 10.6 from 11.3 post-op, may be some dilutional as she received IVF. Patients heart rate improved and she is less tachycardic. ALEXSANDER drain output is serosanguineous She has been tolerating a regular diet and pain well controlled She is voiding well spontaneously Will plan for discharge to home today, with instructions for patient to follow up in clinic this upcoming Wednesday06/30/19 for surgical drain removal Subjective Patient with no acute events overnight. Tolerating a regular diet. Offers no complaints. Physical Exam Physical Exam: awake/alert Gastrointestinal (Abdomen): Inspection/Auscultation: + abdominal surgical incision (intact with steri-strips overtop, some dry drainage) and + abdominal surgical drain present (serosang; put out 365cc over 24 hours); abdomen not distended Percussion/Palpation: abdomen soft Results & Data Vital Signs (Past 12 Hours) Vital Signs Temp Pulse Resp BP Pulse Ox 06/28/19 03:18 36.7 C 74 16 133/74 97 06/27/19 23:29 36.6 C 74 16 124/78 95 PG Care Time/CCT Total # of Minutes Spent Total Time Spent with Patient: Total time spent is greater than 50% in coordination of care (as documented) at patient's floor/unit and/or counseling patient:
[2019-06-28 07:59] VITALS: BP 132/87; TEMP 98.4; O2SAT 96
[2019-06-28 08:00] VITALS: PULSE 85
--- NOTE | 2019-06-30 09:19 | Discharge Summary ---
Date of Service June 30, 2019 Principal Diagnosis cholecystitis Discharge Exam Constitutional well developed and well nourished; no acute distress Gastrointestinal (Abdomen) Inspection/Auscultation: + abdominal surgical incision (with steri-strips and dry surgical dressing overtop) and + abdominal surgical drain present (serosangineous ); abdomen not distended Percussion/Palpation: abdomen soft Discharge Data Allergies Allergy/AdvReac Type Severity Reaction Status Date / Time No Known Allergies Allergy Verified 06/30/19 10:20 Procedures Performed Operation Date: 06/27/19 08:20 Actual Procedures p Laparoscopic Cholecystectomy (Not Applicable) - Neal Arevalo MD Hospital Course (1) S/P laparoscopic cholecystectomy: This is a 34y F who presents to the [facility] on 06/27/19 for a scheduled laparoscopic cholecystectomy with Dr. Arevalo. Intraoperatively after surgical removal of the gallbladder, her liver bed was found to have moderate ooziness, so a ALEXSANDER drain was left in place, and patient was admitted to the hospital for overnight observation. Otherwise the patient tolerated the procedure well, see operative note for full details. Post op the patient tolerated a regular diet, voided spontaneously, and her ALEXSANDER drain remained serosanguineous. Patient's Hbg was monitored and remained overall stable. Small downtrend from 11.3 to 10.6, likely to have some dilutional component has patient received post op IVF. On POD#1 patient felt clinically well and she was discharged to home with her ALEXSANDER drain. She was provided drain education for home. She was instructed to follow up in clinic on 06/30/19 for ALEXSANDER drain removal and a post op check. It was recommended she undergo a CT a/p in the future to evaluate for any liver pathology that attributed to her intraoperative ooziness. Total Time Total Time Spent Total Time Spent (In Minutes): 15 Discharge Plan Discharge Items Patient Disposition: Home - Self-Care Reason For Visit: Cholecystitis Discharge Diagnosis: laparoscopic cholecystectomy Activity: Per Instructions section Lifting: No more than 10 pounds Bathing Comment: you may shower starting today Exercise/Sports: Wait until after follow-up appointment Exercise Comment: light activity for at least 3 weeks. Driving/Machine Use: do not resume driving while you are taking narcotics for pain Non-emergency contact: Surgeon Call non-emergency contact if: you have any medication questions, your symptoms worsen, your pain is not controlled, your pain is worsening, you have a fever, your temperature is above 101.5, your wound has increased redness, your wound has increased drainage and your wound pain has increased Follow-up/Referrals: Neal Arevalo MD [Surgeon] - (Please schedule follow up in clinic this upcoming Wednesday06/30/19 for ALEXSANDER drain removal. You may call the office sooner if you have any questions/concerns.) Miller Mendez [Primary Care Provider] - Diet: Regular Addtl Attending Provider Instructions: You will be discharged with a surgical drain. Please follow the educational instructions the nurses provided during your admission for drain care at home. Please schedule follow up in clinic this upcoming Wednesday06/30/19 for surgical drain removal and follow up. Pending Studies at Discharge: No Stand-Alone Forms: My [facility] Medications and DC Order Prescriptions: New oxycodone-acetaminophen [Percocet] 5-325 mg tablet 1 - 2 tab PO .every 4-6 hours PRN (Reason: pain, for initial therapy) Qty: 15 RF: 0 Continued fluoxetine 20 mg Capsule 20 mg PO HS RF: 0 norgestimate-ethinyl estradiol [Tri-Sprintec (28)] 0.18/0.215/0.25 mg-35 mcg (28) Tablet 1 tab PO QAM RF: 0 pantoprazole [Protonix] 40 mg Tablet,Delayed Release (Dr/Ec) 40 mg PO QDD RF: 0 Discharge Orders: Discharge Order (Routine); Ordered 06/28/19 Ordered By: Jessi Ba Admission Data Admit Date/Time: 06/27/19 11:00 Attending Provider: Neal Arevalo Admit Provider: Neal Arevalo Primary Care Provider: Miller Mendez Other Interventions: Discharge Summary Assessment (RN) Last Done: 06/28/19 07:30 DC Date/Time DO NOT enter until pt leaves facility: 06/28/19 09:42
== END 2019-06-28 09:42 | disposition home or self-care (01) ==
LOC: 3W 07:11 → ASU 07:11